=== PATIENT | female | born 1990 | race Caucasian/White ===

== ENCOUNTER → 2020-12-03 | Outpatient (CLI) | payer BC ==
[~2020-12-03] MED LIST: ALLEGRA ALLERG180 MG PO; ALLEGRA PO; CLARITIN10 MG PO; COLACE 100MG C100 MG PO; GLUCOPHAGE 500500 MG PO; IBU600 MG PO; IBUPROFEN600 MG PO; METFORMIN HCL500 M2 PO; NORCO 5-325 TA1 EACH PO; PRENATA CHEWAB1 EACH PO
== END ==
LOC: KOH-I 14:41
DX: R42 Dizziness and giddiness (principal); R51.9 Headache, unspecified; H53.9 Unspecified visual disturbance
CPT/HCPCS: 70450

== ENCOUNTER → 2021-02-11 | Outpatient (CLI) | payer OTHER | LOC: KOH-I 08:45 | DX: M51.27 Other intervertebral disc displacement, lumbosacral region (principal) | CPT/HCPCS: 72100 ==

== ENCOUNTER 2021-03-04 19:32 | Emergency (ER) | payer OTHER ==
[2021-03-04 20:13] LABS: HEMOGLOBIN 15.6 gm/dl (12.3-15.3); RED BLOOD COUNT 5.48 M/UL (4.00-5.10); WHITE BLOOD COUNT 14.1 K/UL (4.5-11.0)
[2021-03-04 20:36] LABS: BUN/CREATININE RATIO 14 (0-10)
== END 2021-03-05 01:45 | disposition home or self-care (01) ==
LOC: ER1 19:32
PROVIDERS: Physician Assistant
DX: R25.2 Cramp and spasm (principal)
CPT/HCPCS: 80053; 82550; 82553; 84702; 85025; 85652; 86140; 96374; 99283; J1200

== ENCOUNTER → 2021-04-21 | Outpatient (CLI) | payer OTHER | LOC: EMI 13:44 | DX: G37.9 Demyelinating disease of central nervous system, unspecified (principal); G43.909 Migraine, unspecified, not intractable, without status migrainosus; G44.89 Other headache syndrome; G56.00 Carpal tunnel syndrome, unspecified upper limb; R20.2 Paresthesia of skin | CPT/HCPCS: 70553; A9577 ==

== ENCOUNTER → 2021-07-13 | Outpatient (CLI) | payer OTHER | LOC: EMI 12:54 | DX: M48.02 Spinal stenosis, cervical region (principal) | CPT/HCPCS: 72141 ==

== ENCOUNTER → 2021-08-24 | Outpatient (CLI) | payer OTHER | LOC: HEART 5 07:50 | DX: R07.89 Other chest pain (principal); R42 Dizziness and giddiness; R00.2 Palpitations; I25.9 Chronic ischemic heart disease, unspecified | CPT/HCPCS: 78452; A9502; J2785 ==

== ENCOUNTER → 2021-09-28 | Outpatient (CLI) | payer OTHER | LOC: HEART 5 10:47 | DX: R06.00 Dyspnea, unspecified (principal) | CPT/HCPCS: 94060; 94729 ==

== ENCOUNTER → 2021-09-30 | Outpatient (CLI) | payer OTHER | LOC: EXRD 08:57 | DX: R06.00 Dyspnea, unspecified (principal) | CPT/HCPCS: 71046 ==

== ENCOUNTER → 2022-01-04 | Outpatient (CLI) | payer OTHER | LOC: EXRD 10:17 | DX: R10.11 Right upper quadrant pain (principal); R11.0 Nausea; R16.0 Hepatomegaly, not elsewhere classified | CPT/HCPCS: 76705 ==

== ENCOUNTER → 2022-04-05 | Day surgery (SDC) | payer OTHER ==
[~2022-04-05] VITALS: Ht 152.4 cm; Wt 102.5 kg
[~2022-04-05] MED LIST changes: +ARTHRITIS PAIN50 GM TP; +FAMOTIDINE20 MG PO; +LAMOTRIGINE25 MG PO; +METFORMIN HCL500 MG PO; +METHOCARBAMOL500 MG PO; +METOPROLOL SUCC50 MG PO; +PLAQUENIL 200200 MG PO; +PREDNISONE10 MG PO; +RIZATRIPTAN10 M1 PO; +TOPROL XL25 MG PO; +VITAMIN D31250 MCG PO; +ZERVIATE1 EACH OP; +ZOFRAN 4 MG TAB4 MG PO
== END | disposition home or self-care (01) ==
LOC: OR 08:00
DX: K29.50 Unspecified chronic gastritis without bleeding (principal); K31.7 Polyp of stomach and duodenum; M06.9 Rheumatoid arthritis, unspecified; E66.01 Morbid (severe) obesity due to excess calories; Z88.1 Allergy status to other antibiotic agents; Z79.84 Long term (current) use of oral hypoglycemic drugs; Z79.899 Other long term (current) drug therapy
CPT/HCPCS: 84703; J2250; J2704; J7040